=== PATIENT | male | born 1995 | race Caucasian/White ===

== ENCOUNTER 2020-06-08 15:34 | Emergency (ER) | payer OTHER ==
[~2020-06-08 15:34] MED LIST: FLEXERIL 10 MG10 MG PO; IBUPROFEN600 MG PO
[2020-06-08 17:23] LABS: HEMOGLOBIN 14.8 gm/dl (14.0-17.5); RED BLOOD COUNT 5.08 M/UL (4.20-5.50); WHITE BLOOD COUNT 9.5 K/UL (4.5-11.0)
[2020-06-08 17:42] LABS: BUN/CREATININE RATIO 18 (0-10)
[2020-06-08] MEDS ORDERED: ZOFRAN4 MG PO (18:43)
[2020-06-08] MEDS ORDERED: PROTONIX 40 MG40 MG GT (18:43)
[2020-06-10 11:14] LABS: HBSAG SCREEN Negative (Negative); HEP A AB, IGM Negative (Negative); HEP B CORE AB, IGM Negative (Negative); HEP C VIRUS AB <0.1 (0.0-0.9)
== END 2020-06-08 19:00 | disposition home or self-care (01) ==
LOC: ER1 15:34
PROVIDERS: Physician Assistant Medical
DX: R07.89 Other chest pain (principal); R10.9 Unspecified abdominal pain; J45.909 Unspecified asthma, uncomplicated; Z88.6 Allergy status to analgesic agent; Z85.828 Personal history of other malignant neoplasm of skin
CPT/HCPCS: 71045; 80053; 80074; 80307; 81001; 82150; 82550; 82553; 83690; 83874; 84484; 85025; 93005; 99285

== ENCOUNTER 2020-06-22 14:40 | Emergency (ER) | payer OTHER ==
[~2020-06-22 14:40] MED LIST changes: +PROTONIX 40 MG40 MG GT; +ZOFRAN4 MG PO
[2020-06-22 15:48] LABS: RED BLOOD COUNT 4.77 M/UL (4.20-5.50); WHITE BLOOD COUNT 7.2 K/UL (4.5-11.0)
[2020-06-22 16:16] LABS: BUN/CREATININE RATIO 12 (0-10)
[2020-06-22] MEDS ORDERED: VISTARIL25 MG PO (16:34)
== END 2020-06-22 17:10 | disposition home or self-care (01) ==
LOC: ER1 14:40
PROVIDERS: Preventive Medicine Occupational Medicine
DX: F41.0 Panic disorder [episodic paroxysmal anxiety] (principal); J45.909 Unspecified asthma, uncomplicated
CPT/HCPCS: 71045; 80053; 80307; 81001; 83690; 85025; 85652; 87086; 99285; Q0177

== ENCOUNTER 2020-09-16 16:06 | Emergency (ER) | payer OTHER ==
[~2020-09-16 16:06] MED LIST changes: +VISTARIL25 MG PO
[2020-09-16 18:31] LABS: HEMOGLOBIN 14.7 gm/dl (14.0-17.5); WHITE BLOOD COUNT 13.2 K/UL (4.5-11.0)
[2020-09-16 18:56] LABS: BUN/CREATININE RATIO 8 (0-10)
[2020-09-16] MEDS ORDERED: CEPHALEXIN500 M1 PO (21:23)
[2020-09-16] MEDS ORDERED: BACTROBAN OINT22 GM TOP (21:23)
== END 2020-09-16 22:06 | disposition home or self-care (01) ==
LOC: ER1 16:06
PROVIDERS: Physician Assistant
DX: L03.113 Cellulitis of right upper limb (principal); L01.00 Impetigo, unspecified; J45.909 Unspecified asthma, uncomplicated; Z79.82 Long term (current) use of aspirin
CPT/HCPCS: 73130; 80053; 85025; 85652; 86140; 99283

== ENCOUNTER 2021-03-14 17:13 | Emergency (ER) | payer OTHER ==
[~2021-03-14 17:13] MED LIST changes: +BACTROBAN OINT22 GM TOP; +CEPHALEXIN500 M1 PO
[2021-03-14 17:40] LABS: HEMOGLOBIN 14.5 gm/dl (14.0-17.5); RED BLOOD COUNT 4.82 M/UL (4.20-5.50); WHITE BLOOD COUNT 9.8 K/UL (4.5-11.0)
[2021-03-14 18:59] LABS: BUN/CREATININE RATIO 15 (0-10)
== END 2021-03-14 19:25 | disposition home or self-care (01) ==
LOC: ER1 17:13
PROVIDERS: Student in an Organized Health Care Education/Training Program
DX: R10.12 Left upper quadrant pain (principal); J45.909 Unspecified asthma, uncomplicated
CPT/HCPCS: 80053; 81001; 82150; 83690; 85025; 96374; 96375; 99284; J1885; J2405; Q9967

== ENCOUNTER 2021-08-17 10:30 | Emergency (ER) | payer OTHER ==
[2021-08-17 11:23] LABS: HEMOGLOBIN 14.3 gm/dl (14.0-17.5); RED BLOOD COUNT 4.84 M/UL (4.20-5.50); WHITE BLOOD COUNT 6.8 K/UL (4.5-11.0)
[2021-08-17 11:42] LABS: BUN/CREATININE RATIO 17 (0-10)
[2021-08-17] MEDS ORDERED: PROTONIX40 MG PO (14:32)
== END 2021-08-17 14:45 | disposition home or self-care (01) ==
LOC: ER1 10:30
PROVIDERS: Emergency Medicine
DX: R10.9 Unspecified abdominal pain (principal); R10.816 Epigastric abdominal tenderness; J45.909 Unspecified asthma, uncomplicated
CPT/HCPCS: 80053; 81001; 83690; 85025; 96374; 96375; 99284; C9113; J2405; Q9967